=== PATIENT | male | born 1980 | race Caucasian/White ===

== ENCOUNTER 2017-03-13 10:29 | Emergency (ER) | payer OTHER ==
[~2017-03-13] VITALS: Ht 170.2 cm; Wt 68.0 kg
[2017-03-13 10:32] VITALS: BP 168/106; PULSE 88; RESP 16; TEMP 98.4; O2SAT 100
--- NOTE | 2017-03-13 10:38 | PD ---
HPI Chief Complaint: Musculoskeletal Complaint Time Seen by Provider: 10:37 Travel History International Travel<30 days: No Contact w/Intl Traveler<30days: No Traveled to known affect area: No History of Present Illness HPI 36 YO RIGHT-HAND DOMINANT M presents to the ED for evaluation of right wrist pain. Onset approximately 9:30 after falling down 10 stairs. Patient states that he fell onto the outstretched hand. He endorses hitting his head but denies loss of consciousness, headache, dizziness, vision changes, nausea or vomiting. He has been ambulatory since the accident. He denies numbness, tingling, weakness. He endorses limitations to range of motion of the wrist secondary to pain. Denies other somatic complaints. Endorses previous history of laceration with tendon and vascular repair of the right wrist. He requests nonnarcotic pain medications. Unsure of his last tetanus immunization. [facility] Social History Tobacco Use: Yes Allergies-Medications (Allergen,Severity, Reaction): Coded Allergies: No Known Allergies (Unverified , 03/13/17) Reported Meds & Prescriptions Reported Meds & Active Scripts Active Lortab (Hydrocodone-Acetaminophen) 5-325 Mg Tab 1 Tab PO Q6H PRN Ibuprofen 800 Mg Tab 800 Mg PO Q8H Review of Systems Except as stated in HPI: all other systems reviewed are Neg Physical Exam Narrative GENERAL: Well-nourished, well-developed white male in no acute distress. Sitting up in the stretcher. SKIN: Warm and dry. There are 2 small superficial abrasions of the right side of the face near the eye. Thorough evaluation reveals no other edema, ecchymosis, abrasion, or laceration of the skin. HEAD: Normocephalic. Atraumatic. No raccoon eyes or huerta sign. No tenderness to palpation of the skull. No bony step-offs. No malocclusion of the teeth. EYES: No scleral icterus. No injection or drainage. PERRLA. EOMI. ENT: Pearly posadas tympanic membranes bilaterally. Nasal mucosa is moist. Oropharynx without erythema, edema or exudate. NECK: Supple, trachea midline. No JVD or lymphadenopathy. No midline tenderness to palpation. Patient retains full, active, painless range of motion of the neck. CARDIOVASCULAR: Regular rate and rhythm without murmurs, gallops, or rubs. 2+ DP and radial pulses bilaterally. RESPIRATORY: Breath sounds clear and equal bilaterally. No accessory muscle use. GASTROINTESTINAL: Abdomen soft, non-tender, nondistended. + Bowel sounds MUSCULOSKELETAL: No cyanosis, or edema. No tenderness to palpation or limitations to range of motion of the joints of the upper and lower extremities bilaterally. FOCUSED RIGHT UPPER EXTREMITY EXAM: 2+ radial pulse. Flexion and extension of the wrist elicits pain. Strong finger to thumb opposition with each digit. Neurovascularly intact. NEUROLOGICAL: Awake and alert. Cranial nerves II through XII intact. Motor and sensory grossly within normal limits. 5/5 muscle strength in all muscle groups. Normal speech. BACK: Nontender without obvious deformity. No CVA tenderness. No midline tenderness. Data Data Last Documented VS Vital Signs Date Time Temp Pulse Resp B/P Pulse Ox O2 Delivery O2 Flow Rate FiO2 03/13/17 10:32 98.4 88 16 168/106 100 Orders Wrist, Complete ([id number]) (03/13/17 11:17) Ice/Cold Pack (03/13/17 11:17) Ibuprofen (Motrin) (03/13/17 11:30) Tetanus/Diphtheria Tox Adult (Tetanus/Di (03/13/17 11:30) Splinting (03/13/17 ) Acetamin-Hydrocod 325-7.5 Mg ([place] 7.5 (03/13/17 13:00) Mandatory Outpatient Referral (03/13/17 12:59) [facility] Medical Decision Making Medical Screen Exam Complete: Yes Emergency Medical Condition: Yes Differential Diagnosis Abrasion versus laceration versus contusion versus wrist fracture versus less likely ICH versus less likely facial fracture versus other Narrative Course 36 YO RIGHT-HAND DOMINANT M presents to the ED for evaluation of right wrist pain. Onset approximately 9:30 after falling down 10 stairs. Patient states that he fell onto the outstretched hand. He endorses hitting his head but denies LOC, headache, dizziness, vision changes, nausea or vomiting, numbness, tingling, weakness of the extremities. +limited ROM 2/2 wrist pain. Vitals reviewed. Physical exam reveals an alert white male in no acute distress. No focal neuro deficits. 2+ radial pulse. There is TTP of the right wrist and pain secondary to ROM. Strong finger-thumb opposition with each digit. Neurovascularly intact distally. Patient initially requested nonnarcotic pain medication, was administered 800mg ibuprofen. Tetanus immunization was updated. The need for radiological evaluation of the head and cervical spine was ruled out by a [place] CT rules. X-ray of the right wrist reveals closed, displaced, intra-articular, comminuted fracture of the right distal radius per my read. Call placed to the on-call orthopedist. Dr. Hensley reviewed the x-ray and requested the patient be splinted and follow up in the office later this week. Mandatory outpatient consult placed. Sugar tong splint applied by the rn orthopaedics. The patient was provided prescriptions for ibuprofen and Lortab. He is instructed to rest, ice, elevate the extremity, follow up with Dr. Hensley as discussed. He indicated understanding of instructions and is agreeable to a care plan. The patient is stable and discharged home. Diagnosis Primary Impression: Right wrist fracture Qualified Code: S62.101A - Right wrist fracture, closed, initial encounter Referrals: Doni Hensley Jr., MD Patient Instructions: General Instructions, Wrist Fracture in Adults (ED) Additional Instructions: Rest, ice, elevate the extremity. Apply ice no longer than 10-15 minutes per hour a few times a day. 800 mg ibuprofen up to 3 times a day as needed for pain. Lortab as needed for pain greater than 6. Do not remove the splint for any reason. Follow up with orthopedist tomorrow as discussed. Return to the ED for any urgent or emergent medical condition. Med/Other Pt SpecificInfo: Prescription(s) given Scripts Hydrocodone-Acetaminophen (Lortab)5-325 Mg Tab1 Tab PO Q6H PRN (PAIN) #15 TAB Ref 0 Prov:Arie Cochran MD 03/13/17 Ibuprofen 800 Mg [id number] Mg PO Q8H #21 TAB Ref 0 Prov:Arie Cochran MD 03/13/17 Disposition: 01 DISCHARGE HOME Condition: Stable Delphine Thurman Mar 13, 2017 10:37
[2017-03-13] MEDS ORDERED: TETANUS/DIPHTHERIA TOXOID ADULT 0.5 ML VIAL IM ONE (11:30)
[2017-03-13] MEDS ORDERED: IBUPROFEN 800 MG TAB PO ONE (11:30)
--- NOTE | 2017-03-13 12:37 | RADRPT ---
EXAM DATE/TIME: 03/13/2017 11:46 [place] COMPARISON: No previous studies available for comparison. INDICATIONS : Right wrist pain, fall down stairs. MEDICAL HISTORY : None. SURGICAL HISTORY : Tendon repair on right wrist ENCOUNTER: Initial ACUITY: 1 day PAIN SCORE: 8/10 LOCATION: Right lateral wrist FINDINGS: The examination demonstrates a comminuted, impacted, dorsally angulated fracture of the distal right radius. There is intra-articular extension. The remainder the osseous structures visualized appear grossly intact. CONCLUSION: 1. Comminuted, impacted, dorsally angulated fracture of the distal right radius with intra-articular extension Juliano Lamas MD on March 13, 2017 at 12:32 Board Certified Radiologist. This report was verified electronically.
[2017-03-13] MEDS ORDERED: ACETAMINOPHEN/HYDROcodone 325 MG/7.5 MG TAB PO ONE (13:00)
[2017-03-13] MEDS ORDERED: HYDR-3533 PO (13:01)
[2017-03-13] MEDS ORDERED: IBUP800T23 PO (13:01)
== END 2017-03-13 13:22 | disposition home or self-care (01) ==
LOC: NEPD 10:29
DX: S62.101A Fracture of unspecified carpal bone, right wrist, initial encounter for closed fracture (principal); W10.9XXA Fall (on) (from) unspecified stairs and steps, initial encounter; Z72.0 Tobacco use; Z23 Encounter for immunization
CPT/HCPCS: 29125; 73110; 90471; 90714

== ENCOUNTER 2017-03-18 22:41 | Emergency (ER) | payer OTHER ==
[~2017-03-18] VITALS: Ht 170.2 cm; Wt 70.0 kg
[~2017-03-18 22:41] MED LIST: HYDR-3533 PO; IBUP800T23 PO
[2017-03-18 22:42] VITALS: BP 160/106; PULSE 83; RESP 16; TEMP 98.3; O2SAT 96
--- NOTE | 2017-03-19 01:12 | PD ---
HPI Chief Complaint: Psychiatric Symptoms Time Seen by Provider: 00:20 Travel History International Travel<30 days: No Contact w/Intl Traveler<30days: No Traveled to known affect area: No History of Present Illness HPI Patient's 36-year-old male presenting to emergency for voluntarily due to suicidal ideations. He initially reported that the police brought him to the emergency department and dropped him off. Patient reports feeling tired and overwhelmed, he's had issues with depression since his mother last August. He also states his symptoms got worse when somebody mentioned his 13- year-old daughter. He states that she doesn't want to talk to him at times, it may be because she is a teenager patient states he hasn't been sleeping well because his mind has been racing. He denies any previous suicide attempts or history of depression or psychiatric issues. Patient states he drinks 4 tall boys every day, he had those today. He denies any illicit drug use currently but reports a history of it. PFSH Past Medical History Medical History: Denies Significant Hx Tetanus Vaccination: < 5 Years Influenza Vaccination: No Social History Alcohol Use: Yes (4 TALL BOYS/DAY) Tobacco Use: Yes Substance Use: Yes (MARIJUANA) Allergies-Medications (Allergen,Severity, Reaction): Coded Allergies: No Known Allergies (Unverified , 03/18/17) Reported Meds & Prescriptions Reported Meds & Active Scripts Active Lortab (Hydrocodone-Acetaminophen) 5-325 Mg Tab 1 Tab PO Q6H PRN Ibuprofen 800 Mg Tab 800 Mg PO Q8H Review of Systems Except as stated in HPI: all other systems reviewed are Neg Psychiatric: Positive: Depression, Suicidal Ideations, Substance Abuse Physical Exam Narrative GENERAL: Well-developed, well-nourished, male. Resting comfortably in no acute distress. Appears drowsy. SKIN: Focused skin assessment warm/dry. HEAD: Atraumatic. Normocephalic. EYES: Pupils equal and round. No scleral icterus. No injection or drainage. ENT: No nasal bleeding or discharge. Mucous membranes pink and moist. NECK: Trachea midline. No JVD. CARDIOVASCULAR: Regular rate and rhythm. No murmur appreciated. RESPIRATORY: No accessory muscle use. Clear to auscultation. Breath sounds equal bilaterally. GASTROINTESTINAL: Abdomen soft, non-tender, nondistended. Hepatic and splenic margins not palpable. MUSCULOSKELETAL: No obvious deformities. No clubbing. No cyanosis. No edema. NEUROLOGICAL: Awake and alert. No obvious cranial nerve deficits. Motor grossly within normal limits. Normal speech. PSYCHIATRIC: Appropriate mood and affect; insight and judgment normal. Data Data Last Documented VS Vital Signs Date Time Temp Pulse Resp B/P Pulse Ox O2 Delivery O2 Flow Rate FiO2 03/18/17 22:42 98.3 83 16 160/106 96 Room Air Orders Complete Blood Count With Diff (03/19/17 00:23) Comprehensive Metabolic Panel (03/19/17 00:23) Psych Screen (03/19/17 00:23) Drug Screen, Random Urine (03/19/17:23) Alcohol (Ethanol) (03/19/17:23) Salicylates (Aspirin) (03/19/17:23) Tylenol (Acetaminophen) (03/19/17 00:23) Labs Laboratory Tests Test 03/19/17 03/19/17 00:50 01:20 White Blood Count 7.7 TH/MM3 Red Blood Count 3.96 MIL/MM3 Hemoglobin 12.2 GM/DL Hematocrit 36.6 % Mean Corpuscular Volume 92.3 FL Mean Corpuscular Hemoglobin 30.8 PG Mean Corpuscular Hemoglobin 33.3 % Concent Red Cell Distribution Width 13.7 % Platelet Count 250 TH/MM3 Mean Platelet Volume 6.5 FL Neutrophils (%) (Auto) 63.5 % Lymphocytes (%) (Auto) 25.5 % Monocytes (%) (Auto) 7.7 % Eosinophils (%) (Auto) 2.6 % Basophils (%) (Auto) 0.7 % Neutrophils # (Auto) 4.9 TH/MM3 Lymphocytes # (Auto) 2.0 TH/MM3 Monocytes # (Auto) 0.6 TH/MM3 Eosinophils # (Auto) 0.2 TH/MM3 Basophils # (Auto) 0.1 TH/MM3 CBC Comment DIFF FINAL Differential Comment Sodium Level 141 MEQ/L Potassium Level 3.6 MEQ/L Chloride Level 105 MEQ/L Carbon Dioxide Level 28.4 MEQ/L Anion Gap 8 MEQ/L Blood Urea Nitrogen 13 MG/DL Creatinine 0.91 MG/DL Estimat Glomerular Filtration 95 ML/MIN Rate Random Glucose 78 MG/DL Calcium Level 8.6 MG/DL Total Bilirubin 0.6 MG/DL Aspartate Amino Transf 102 U/L (AST/SGOT) Alanine Aminotransferase 112 U/L (ALT/SGPT) Alkaline Phosphatase 77 U/L Total Protein 6.7 GM/DL Albumin 3.7 GM/DL Salicylates Level 2.6 MG/DL Acetaminophen Level 3.7 MCG/ML Ethyl Alcohol Level LESS THAN 3 MG/DL Urine Opiates Screen NEG Urine Barbiturates Screen NEG Urine Amphetamines Screen NEG Urine Benzodiazepines Screen NEG Urine Cocaine Screen NEG Urine Cannabinoids Screen NEG MDM Medical Decision Making Medical Screen Exam Complete: Yes Emergency Medical Condition: Yes Interpretation(s) Laboratory Tests Test 03/19/17 03/19/17 00:50 01:20 White Blood Count 7.7 TH/MM3 Red Blood Count 3.96 MIL/MM3 Hemoglobin 12.2 GM/DL Hematocrit 36.6 % Mean Corpuscular Volume 92.3 FL Mean Corpuscular Hemoglobin 30.8 PG Mean Corpuscular Hemoglobin 33.3 % Concent Red Cell Distribution Width 13.7 % Platelet Count 250 TH/MM3 Mean Platelet Volume 6.5 FL Neutrophils (%) (Auto) 63.5 % Lymphocytes (%) (Auto) 25.5 % Monocytes (%) (Auto) 7.7 % Eosinophils (%) (Auto) 2.6 % Basophils (%) (Auto) 0.7 % Neutrophils # (Auto) 4.9 TH/MM3 Lymphocytes # (Auto) 2.0 TH/MM3 Monocytes # (Auto) 0.6 TH/MM3 Eosinophils # (Auto) 0.2 TH/MM3 Basophils # (Auto) 0.1 TH/MM3 CBC Comment DIFF FINAL Differential Comment Sodium Level 141 MEQ/L Potassium Level 3.6 MEQ/L Chloride Level 105 MEQ/L Carbon Dioxide Level 28.4 MEQ/L Anion Gap 8 MEQ/L Blood Urea Nitrogen 13 MG/DL Creatinine 0.91 MG/DL Estimat Glomerular Filtration 95 ML/MIN Rate Random Glucose 78 MG/DL Calcium Level 8.6 MG/DL Total Bilirubin 0.6 MG/DL Aspartate Amino Transf 102 U/L (AST/SGOT) Alanine Aminotransferase 112 U/L (ALT/SGPT) Alkaline Phosphatase 77 U/L Total Protein 6.7 GM/DL Albumin 3.7 GM/DL Salicylates Level 2.6 MG/DL Acetaminophen Level 3.7 MCG/ML Ethyl Alcohol Level LESS THAN 3 MG/DL Urine Opiates Screen NEG Urine Barbiturates Screen NEG Urine Amphetamines Screen NEG Urine Benzodiazepines Screen NEG Urine Cocaine Screen NEG Urine Cannabinoids Screen NEG Vital Signs Date Time Temp Pulse Resp B/P Pulse Ox O2 Delivery O2 Flow Rate FiO2 03/18/17 22:42 98.3 83 16 160/106 96 Room Air Differential Diagnosis Mood disorder versus substance abuse versus depression versus suicidal ideations versus other Narrative Course Patient is a 36-year-old male presenting to emergency voluntarily due to suicidal ideations.Mental health screening discussed with the patient. Psychiatric screen ordered. Patient appears drowsy, he reported to the nurse that he took Lortab at 10 PM, this was prescribed to him previously for wrist fracture. CBC is unremarkable, chemistry with mild transaminitis, urine drug screen is negative, acetaminophen, salicylate, alcohol reviewed and are unremarkable. Patient is medically cleared for psychiatric evaluation at this time. He is resting comfortably, cooperative. Diagnosis Primary Impression: Medical clearance for psychiatric admission Condition: Stable Verenice Serrato Mar 19, 2017 01:12
[2017-03-19 01:13] LABS: AUTOMATED NEUTROPHIL # 4.9 TH/MM3 (1.8-7.7); BASOPHIL # 0.1 TH/MM3 (0-0.2); BASOPHIL % 0.7 % (0.0-2.0); EOSINOPHIL # 0.2 TH/MM3 (0-0.4); EOSINOPHIL % 2.6 % (0.0-4.0); HEMATOCRIT 36.6 % (39.0-51.0); HEMO FLAGS DIFF FINAL; LYMPH % 25.5 % (9.0-44.0); MEAN CELL VOLUME 92.3 FL (80.0-100.0); MEAN CORPUSCULAR HEMOGLOBIN 30.8 PG (27.0-34.0); MEAN CORPUSCULAR HGB CONC 33.3 % (32.0-36.0); MONO % 7.7 % (0.0-8.0); NEUT % 63.5 % (16.0-70.0); PLATELET COUNT 250 TH/MM3 (150-450); RED BLOOD COUNT 3.96 MIL/MM3 (4.50-5.90); RED CELL DISTRIBUTION WIDTH 13.7 % (11.6-17.2); WHITE BLOOD COUNT 7.7 TH/MM3 (4.0-11.0)
[2017-03-19 01:25] LABS: ALT (GPT) 112 U/L (12-78); ANION GAP 8 MEQ/L (5-15); AST (GOT) 102 U/L (15-37); BICARBONATE 28.4 MEQ/L (21.0-32.0); BLOOD UREA NITROGEN 13 MG/DL (7-18); CHLORIDE 105 MEQ/L (98-107); GLOMERULAR FILTRATION RATE 95 ML/MIN (>89); POTASSIUM 3.6 MEQ/L (3.5-5.1); SODIUM (NA) 141 MEQ/L (136-145)
[2017-03-19 01:28] LABS: ACETAMINOPHEN 3.7 MCG/ML (10.0-30.0); ALKALINE PHOSPHATASE 77 U/L (45-117); TOTAL BILIRUBIN ADULT 0.6 MG/DL (0.2-1.0)
[2017-03-19 01:36] LABS: AMPHETAMINE, URINE NEG (NEG); BARBITURATES, URINE NEG (NEG); COCAINE, URINE NEG (NEG)
[2017-03-19 04:14] VITALS: BP 141/89; PULSE 54; RESP 18; O2SAT 97
[2017-03-19 07:28] VITALS: BP 136/82; PULSE 66; RESP 18; O2SAT 98
== END 2017-03-19 09:39 | disposition home or self-care (01) ==
LOC: NEPD 22:41
DX: R45.851 Suicidal ideations (principal); F32.9 Major depressive disorder, single episode, unspecified; Z72.0 Tobacco use
CPT/HCPCS: 80053; 80307; 85025; 99283